=== PATIENT | female | born 1950 | race Caucasian/White ===

== ENCOUNTER 2019-03-27 12:19 | Inpatient (IN) | payer OTHER ==
[~2019-03-27] VITALS: Ht 157.5 cm; Wt 79.8 kg
[~2019-03-27 12:19] MED LIST: GABA400C PO; IBUP-1842 PO; ZOLP10TA1 PO
[2019-03-27 12:39] VITALS: BP 102/56
--- NOTE | 2019-03-27 12:50 | NUR ---
PATIENT RECEIVED FROM TRIAGE, SENT TO ER BY GARMENT CUTTER FOR LOW BP. PT STATES TAKES NORCO, FOR HX OF BROKEN NECK, ON METROPOLOL FOR PALPITTIONS. PENDING MD SOLIS
--- NOTE | 2019-03-27 13:03 | NUR ---
Dr. José is evaluating the patient at bedside.
[2019-03-27] MEDS ORDERED: NACL 0.9% 1,000 ML IV ONE (13:15)
[2019-03-27] MEDS ORDERED: ASPIRIN 81 MG TAB.CHEW PO ONE (13:15)
[2019-03-27 13:43] LABS: BASOPHILS % (AUTO) 0.4 % (0.0-2.0); EOSINOPHILS # (AUTO) 0.2 K/uL (0-0.4); EOSINOPHILS % (AUTO) 3.4 % (0.0-4.0); HEMATOCRIT 34.8 % (36-48); HEMOGLOBIN 11.4 g/dL (12.0-16.0); LYMPHOCYTES # (AUTO) 2.7 K/uL (2.5-16.5); LYMPHOCYTES % (AUTO) 38.8 % (20.5-51.1); MEAN CORPUSCULAR HEMOGLOBIN 30 pg (27-31); MEAN CORPUSCULAR HGB CONC 33 g/dL (33-37); MEAN CORPUSCULAR VOLUME 90.9 fL (80-94); MONOCYTES # (AUTO) 0.4 K/uL (0.8-1.0); NEUTROPHILS # (AUTO) 3.6 K/uL (1.8-7.7); NEUTROPHILS % (AUTO) 51.4 % (42.2-75.2); PLATELET COUNT (AUTO) 319 K/uL (140-450); RED BLOOD CELL COUNT(AUTO) 3.83 MIL/uL (4.20-5.40); RED CELL DISTRIBUTION WIDTH 14.2 % (11.6-13.7)
[2019-03-27 14:01] LABS: ALBUMIN 3.9 g/dL (3.4-5.0); ANION GAP 12.9 (8-16); CARBON DIOXIDE 29.9 mmol/L (21-32); CREATININE 0.9 mg/dL (0.6-1.3); POTASSIUM 3.8 mmol/L (3.5-5.1); TOTAL BILIRUBIN 0.4 mg/dL (0.0-1.0)
--- NOTE | 2019-03-27 14:39 | NUR ---
UA collected and sent to lab.
[2019-03-27] MEDS ORDERED: ACETAMINOPHEN 325 MG TAB PO PRN (15:25)
[2019-03-27] MEDS ORDERED: MORPHINE SULFATE 2 MG/ML SYR IVP PRN (15:25)
[2019-03-27] MEDS ORDERED: LORazepam 2 MG/ML VIAL IM/IVP PRN (15:25)
[2019-03-27] MEDS ORDERED: ZOLPIDEM 5 MG TAB PO PRN (15:25)
[2019-03-27] MEDS ORDERED: ONDANSETRON 4 MG/2 ML VIAL IM/IVP PRN (15:25)
[2019-03-27] MEDS ORDERED: DOCUSATE SODIUM 100 MG GELCAP PO PRN (15:25)
[2019-03-27] MEDS ORDERED: NITROGLYCERIN 0.4 MG TAB SL PRN (15:35)
[2019-03-27] MEDS: NACL 0.9% 1,000 ML IV SCH (15:51)
[2019-03-27 16:13] LABS: PROTHROMBIN TIME 9.3 secs (10.8-13.4)
[2019-03-27 16:27] LABS: MAGNESIUM 1.9 mg/dL (1.8-2.4); THYROID STIMULATING HORMONE 5.19 uIU/mL (0.34-3.74)
--- NOTE | 2019-03-27 16:30 | NUR ---
PATIENT RELAXED IN ED ROOM, DOING BETZAIDA, VERY TALKATIVE AND HAPPY PERSONALITY. NAD PENDING ROOM PLACEMENT.
[2019-03-27 16:38] LABS: CHOL/HDL RATIO 2.8 (1-4.5)
[2019-03-27] MEDS ORDERED: KETOROLAC 15 MG/ML VIAL IVP PRN (16:50)
[2019-03-27 17:03] LABS: BILIRUBIN,URINE NEGATIVE (NEGATIVE); BLOOD, URINE NEGATIVE (NEGATIVE); COLOR,URINE YELLOW (YELLOW); LEUKOCYTE ESTERASE ,URINE 1+ (NEGATIVE); NITRITE, URINE NEGATIVE (NEGATIVE); PH,URINE 5.5 (5.0-9.0); UGLUCOSE NEGATIVE (NEGATIVE)
[2019-03-27 17:06] LABS: APPEARANCE,URINE HAZY (CLEAR)
[2019-03-27 17:40] VITALS: BP 132/65
--- NOTE | 2019-03-27 17:40 | NUR ---
RECEIVED PATIENT FROM ER. ABLE TO AMBULATE WITH STEADY GAIT. AAOX4, CALM, COOPERATIVE, SKIN COLOR APPROPRIATE TO ETHNICITY, WARM TO TOUCH. SKIN INTACT. IV SITE INTACT, PATENT, AND INFUSING IVF PER MD ORDERS. REVIEWED PLAN OF CARE WITH PATIENT. PATIENT VERBALIZED UNDERSTANDING. ORIENTED PATIENT TO ROOM AND CALL LIGHT. SAFETY MEASURES IN PLACE, CALL LIGHT WITHIN REACH. WILL CONTINUE TO MONITOR.
--- NOTE | 2019-03-27 17:40 | NUR ---
Patient will be admitted to care of [facility] FLOOR ROOM 106A. REPORT GIVEN AT BEDSIDE TO ROSELYN COURTNEY. Belongings list completed AND SIGNED BY MYSELF/ ROSELYN COURTNEY. IVF INFUSING VIA PUMP AT 60 ML /HR.
[2019-03-27 17:42] LABS: RBC,URINE 0-5 /HPF (0-5)
[2019-03-27 17:55] LABS: BARBITURATE, URINE NEG. ng/ml (NEG <=200); BENZODIAZEPINE, URINE NEG. ng/mL (NEG <=200); CANNABINOID, URINE NEG. ng/mL (NEG <=50); COCAINE, URINE NEG. ng/mL (NEG <=300); OPIATE, URINE POS. ng/mL (NEG <=2000); PHENCYCLIDINE SCREEN,URINE NEG. ng/mL (NEG <=25)
--- NOTE | 2019-03-27 19:27 | NUR ---
GAVE REPORT TO PRODUCTION SOUND MIXER NURSE FOR CONTINUITY OF CARE. PATIENT IN STABLE CONDITION.
--- NOTE | 2019-03-27 19:28 | NUR ---
RECEIVED PATIENT FROM AM SHIFT NURSE, ABLE TO AMBULATE WITH STEADY GAIT. AAOX4, PATIENT WITH SOME HYPERACTIVE MOVEMENTS NOTED,AMBULATING INSIDE HER ROOM. COOPERATIVE, SKIN COLOR APPROPRIATE TO ETHNICITY, WARM TO TOUCH. SKIN INTACT. IV SITE INTACT,L WRIST G 20 PATENT, AND INFUSING NS AT 60ML/HR. POC REVIEWED. PATIENT VERBALIZED UNDERSTANDING. ORIENTED PATIENT TO ROOM AND CALL LIGHT. SAFETY MEASURES IN PLACE, CALL LIGHT WITHIN REACH. WILL CONTINUE TO MONITOR.
[2019-03-27 20:00] VITALS: BP 134/49
[2019-03-27] MEDS: ZOLPIDEM 10 MG TAB PO SCH (20:34)
[2019-03-27] MEDS: ATORVASTATIN 20 MG TAB PO SCH (20:34)
[2019-03-27] MEDS: HYDROcodone/APAP 5/325 MG 1 TAB TAB PO PRN (20:35)
--- NOTE | 2019-03-27 20:35 | NUR ---
PATIENT C/O OF PAIN ON THE NECK 09/26, GIVEN NORCO ORDERED. EXPLAINED THE SIDE EFFECTS. PT VERBALIZED UNDERSTANDING. WILL RE-ASSESS LATER
[2019-03-27] MEDS: GABAPENTIN 100 MG CAP PO SCH (20:36)
[2019-03-27] MEDS ORDERED: METOPROLOL 25 MG TAB PO SCH (21:00)
[2019-03-27] MEDS ORDERED: IBUPROFEN 400 MG TAB PO SCH (21:00)
--- NOTE | 2019-03-27 21:35 | NUR ---
PT RE-ASSESSED FOR PAIN MINIMAL PAIN TOLERATED. PT AMBULATING IN THE ROOM; SOME HYPERACTIVITY NOTED.
--- NOTE | 2019-03-27 23:40 | NUR ---
PT EATING A SANDWICH. ON CARDIAC DIET
[2019-03-28] VITALS: BP 132/50
--- NOTE | 2019-03-28 02:40 | NUR ---
PT TRYING TO SLEEP NO COMPLAINTS AT THI TIME, WILL CONTINUE TO MONITOR
[2019-03-28 04:00] VITALS: BP 132/52
[2019-03-28] MEDS: HYDROcodone/APAP 5/325 MG 1 TAB TAB PO PRN ×2 (04:40→20:42)
--- NOTE | 2019-03-28 05:12 | NUR ---
PT TRYING TO SLEEP, BUT NOT GETTING SLEEP, ALREADY TOOK THE SLEEPING PILL LAST NIGHT.WILL MONITOR
--- NOTE | 2019-03-28 06:18 | NUR ---
PT DISLODGED HER IVF; NO SWELLING OBSERVED; NO BLEEDING. INFORMED DR. NELSON THROUGH DR. HOLMAN. WILL TRY AGAIN LATER. PT IS ABLE TO DRINK WATER.
--- NOTE | 2019-03-28 06:41 | NUR ---
MULTIPLE TIMES IV INSERTION ON PATIENT, HARD STICK. DR. HALL INFORMED. PT IS ABLE TO DRINK FLUIDS EASILY.
--- NOTE | 2019-03-28 06:43 | NUR ---
PT A, A, O X 4, AMBULATORY. PT NO COMPLAINTS OF CHEST PAIN, NO RESPIRATORY DISTRESS NOTED WITH BLOOD PRESSURE OF 132/52 MMHG; 73 HEART RATE; 97% 02 SAT.
[2019-03-28 06:56] LABS: BASOPHILS # (AUTO) 0.1 K/uL (0.00-0.22); BASOPHILS % (AUTO) 1.6 % (0.0-2.0); EOSINOPHILS # (AUTO) 0.2 K/uL (0-0.4); EOSINOPHILS % (AUTO) 3.6 % (0.0-4.0); HEMATOCRIT 36.4 % (36-48); HEMOGLOBIN 11.6 g/dL (12.0-16.0); LYMPHOCYTES # (AUTO) 2.3 K/uL (2.5-16.5); LYMPHOCYTES % (AUTO) 35.2 % (20.5-51.1); MEAN CORPUSCULAR HEMOGLOBIN 29 pg (27-31); MEAN CORPUSCULAR HGB CONC 32 g/dL (33-37); MEAN CORPUSCULAR VOLUME 92.3 fL (80-94); MONOCYTES # (AUTO) 0.4 K/uL (0.8-1.0); MONOCYTES % (AUTO) 6.1 % (1.7-9.3); NEUTROPHILS # (AUTO) 3.5 K/uL (1.8-7.7); NEUTROPHILS % (AUTO) 53.5 % (42.2-75.2); PLATELET COUNT (AUTO) 303 K/uL (140-450); RED BLOOD CELL COUNT(AUTO) 3.94 MIL/uL (4.20-5.40); WHITE BLOOD COUNT (AUTO) 6.6 K/uL (4.8-10.8)
[2019-03-28 07:10] LABS: ANION GAP 12.3 (8-16); CARBON DIOXIDE 30.3 mmol/L (21-32); CREATININE 0.9 mg/dL (0.6-1.3); POTASSIUM 3.6 mmol/L (3.5-5.1)
--- NOTE | 2019-03-28 07:20 | NUR ---
RECEIVED BEDSIDE REPORT FROM ADULT AND PEDIATRIC NEUROLOGIST NURSE. PT IS AWAKE AND ALERT, NO S/S OF ACUTE DISTRESS OR SOB. NO IV SITE NOTED; PER NIGHT NURSE, IV SITE COULD NOT BE ESTABLISHED AFTER SEVERAL ATTEMPTS, PT IS A HARD STICK. WILL ATTEMPT TO INSERT AN IV THIS AM. PT IS ON ROOM AIR. SKIN INTACT. CALL LIGHT AND PERSONAL ITEMS ARE WITHIN REACH. WILL CONTINUE TO MONITOR.
[2019-03-28 07:22] LABS: PHOSPHORUS 3.2 mg/dL (2.5-4.9)
[2019-03-28 08:00] VITALS: BP 139/59
[2019-03-28] MEDS: NACL 0.9% 1,000 ML IV SCH (08:04)
[2019-03-28] MEDS ORDERED: LISINOPRIL 5 MG TAB PO SCH (09:00)
--- NOTE | 2019-03-28 09:10 | NUR ---
DR ANDUJAR MADE AWARE THAT PT IS C/O ITCHINESS AND WILL ORDER BENADRYL
--- NOTE | 2019-03-28 10:00 | NUR ---
PATIENT HAS BEEN SCREENED AND CATEGORIZED MODERATE NUTRITION RISK. PATIENT WILL BE SEEN WITHIN 3-5 DAYS OF ADMISSION. 03/30/19 04/01/[address]
--- NOTE | 2019-03-28 10:02 | NUR ---
AM MEDS ADMINISTERED, PT TOLERATED WELL
[2019-03-28] MEDS: ASPIRIN 81 MG TAB.CHEW PO SCH (10:03)
[2019-03-28] MEDS: FERROUS SULFATE 325 MG TABEC PO SCH (10:03)
[2019-03-28] MEDS: ASCORBIC ACID 500 MG TAB PO SCH (10:03)
[2019-03-28] MEDS: LACTOBACILLUS RHAMNOSUS GG 1 EACH CAP PO SCH (10:03)
--- NOTE | 2019-03-28 11:12 | NUR ---
IV INSERTED, L FA 22 G.
[2019-03-28 12:00] VITALS: BP 143/72
--- NOTE | 2019-03-28 14:22 | NUR ---
PT IS VISITING WITH TWO FRIENDS AT THIS TIME, NO C/O OF ANY DISTRESS.
--- NOTE | 2019-03-28 14:29 | NUR ---
Sewing Machine Bobbin Winder Note: Basic Screen: Yes High Risk DC Screen [place]: ROSAS ELMORE Al[place] Relationship: FRIEND Pre-Admission Living Arrangements: Lives Alone Prior ADL Independent Current Home Health Name/Tel: N/A Current DME/02 Name/Tel: DANNIELLE Current Hospice Name/Tel: N/A Current Dialysis Name/Tel: N/A Healthcare Decision Maker: Patient Advance Directive No - REFUSED Information Taught: Advance Directive Person Taught: Patient Teaching Tools: Verbal Factors Affecting Learning: None Participation Level: Refused Evaluation: Verbalizes Understanding Needs Additional Education: No Discipline: Case Mgt/Social Svcs Tentative Discharge Plan/Destination: No Needs Identified Will require assistance post discharge: No Referred to [facility]: No Tentative Discharge Plan Summary: Patient is a 68 y/o female admitted for chest pain and low blood pressure. Patient has PMHX of chronic pain s/p, IBS, and palpatations. Patient was admitted from home. SW verified demographics with patient. Patient denies mental heatlh history and substance abuse history. Patient's tentative plan after discharge is to return home. SW inquired if patient is able to have all needs met without the use of a learning support aide. Patient stated she is independent. Patient's plan after discharge is to return home. Signature: KATERINE Paz Date: Mar 28, 2019 Time: 14:29
[2019-03-28 16:00] VITALS: BP 140/78
--- NOTE | 2019-03-28 17:30 | NUR ---
PT IS LYING COMFORTABLY IN BED AND KNITTING. NO C/O PAIN OR DISTRESS. NO CHEST PAIN COMPLAINTS. VS ARE STABLE. CALL LIGHT IS WITHIN REACH.
--- NOTE | 2019-03-28 19:20 | NUR ---
ENDORSED PT TO CONVENTION PLANNER NURSE IN STABLE CONDITION.
--- NOTE | 2019-03-28 19:21 | NUR ---
RECEIVED ENDORSEMENT FROM AM SHIFT. NO APPARENT DISTRESS NOTED. PATIENT ALERT AND ORIENTED X4. IV ON LEFT FOREARM 22G RUNNING IVF. SKIN IS INTACT. AMBULATORY TO BATHROOM. BED ON LOW POSITION. CALL LIGHT WITHIN REACH. WILL CONTINUE TO MONITOR.
[2019-03-28 20:00] VITALS: BP 150/72
[2019-03-28] MEDS: ATORVASTATIN 20 MG TAB PO SCH (20:39)
[2019-03-28] MEDS: METOPROLOL 25 MG TAB PO SCH (20:41)
[2019-03-28] MEDS: GABAPENTIN 100 MG CAP PO SCH (20:42)
--- NOTE | 2019-03-28 21:20 | NUR ---
PATIENT AWAKE IN BED. BED ON LOW POSITION. NO APPARENT DISTRESS NOTED. CALL LIGHT WITHIN REACH. WILL CONTINUE TO MONITOR.
[2019-03-28] MEDS: ZOLPIDEM 10 MG TAB PO SCH (22:21)
--- NOTE | 2019-03-28 23:15 | NUR ---
ROUNDS DONE. PATIENT AWAKE IN BED, RESTING COMFORTABLY. NO APPARENT DISTRESS NOTED. WILL CONTINUE TO MONITOR.
[2019-03-29] VITALS: BP 134/79
[2019-03-29] MEDS: NACL 0.9% 1,000 ML IV SCH (00:22)
--- NOTE | 2019-03-29 01:15 | NUR ---
PATIENT ASLEEP IN BED. NO APPARENT DISTRESS NOTED. VISIBLE CHEST RISE AND FALL NOTED. WILL CONTINUE TO MONITOR.
--- NOTE | 2019-03-29 03:01 | NUR ---
ROUNDS DONE. PATIENT ASLEEP IN BED. VISIBLE CHEST RISE AND FALL NOTED. NO APPARENT DISTRESS NOTED. WILL CONTINUE TO MONITOR.
[2019-03-29 04:00] VITALS: BP 145/64
--- NOTE | 2019-03-29 05:00 | NUR ---
PATIENT ASLEEP IN BED. NO APPARENT DISTRESS NOTED. WILL CONTINUE TO MONITOR.
[2019-03-29 06:39] LABS: MAGNESIUM 2.1 mg/dL (1.8-2.4)
[2019-03-29 06:53] LABS: BASOPHILS % (AUTO) 0.5 % (0.0-2.0); EOSINOPHILS # (AUTO) 0.2 K/uL (0-0.4); EOSINOPHILS % (AUTO) 3.3 % (0.0-4.0); HEMATOCRIT 32.8 % (36-48); HEMOGLOBIN 10.9 g/dL (12.0-16.0); LYMPHOCYTES # (AUTO) 2.1 K/uL (2.5-16.5); LYMPHOCYTES % (AUTO) 34.4 % (20.5-51.1); MEAN CORPUSCULAR HEMOGLOBIN 31 pg (27-31); MEAN CORPUSCULAR HGB CONC 33 g/dL (33-37); MEAN CORPUSCULAR VOLUME 91.6 fL (80-94); MONOCYTES # (AUTO) 0.5 K/uL (0.8-1.0); NEUTROPHILS # (AUTO) 3.3 K/uL (1.8-7.7); NEUTROPHILS % (AUTO) 53.8 % (42.2-75.2); PLATELET COUNT (AUTO) 264 K/uL (140-450); RED BLOOD CELL COUNT(AUTO) 3.58 MIL/uL (4.20-5.40); RED CELL DISTRIBUTION WIDTH 13.9 % (11.6-13.7); WHITE BLOOD COUNT (AUTO) 6.1 K/uL (4.8-10.8)
--- NOTE | 2019-03-29 07:00 | NUR ---
ENDORSED TO AM SHIFT IN STABLE CONDITION FOR CONTINUITY OF CARE.
--- NOTE | 2019-03-29 07:05 | NUR ---
RECEIVED REPORT FROM NIGHT NURSE. PT ASLEEP, ABLE TO WAKE. RESPIRATION EVEN AND UNLABORED. NO S/S OF DISTRESS NOTED. CALL LIGHT WITHIN REACH.
[2019-03-29 07:28] LABS: ANION GAP 13.1 (8-16); CARBON DIOXIDE 24.8 mmol/L (21-32); CREATININE 0.7 mg/dL (0.6-1.3); POTASSIUM 3.9 mmol/L (3.5-5.1)
--- NOTE | 2019-03-29 07:40 | NUR ---
DR. DAVIS NOTIFIED PT OF DISCHARGE PLAN FOR TODAY.
[2019-03-29 08:00] VITALS: BP 153/82
[2019-03-29 08:09] LABS: FERRITIN 35 ng/mL (15-150); FOLIC ACID > 20.00 ng/mL (>3.0); TRANSFERRIN 319 mg/dL (200-370)
[2019-03-29] MEDS ORDERED: LACTOBACILLUS RHAMNOSUS GG 1 EACH CAP PO SCH (09:00)
[2019-03-29] MEDS: FERROUS SULFATE 325 MG TABEC PO SCH (09:01)
[2019-03-29] MEDS: HYDROcodone/APAP 5/325 MG 1 TAB TAB PO PRN (09:01)
[2019-03-29] MEDS: LACTOBACILLUS RHAMNOSUS GG 1 EACH CAP PO SCH (09:01)
[2019-03-29] MEDS: ASCORBIC ACID 500 MG TAB PO SCH (09:02)
[2019-03-29] MEDS: METOPROLOL 25 MG TAB PO SCH (09:02)
[2019-03-29] MEDS: ASPIRIN 81 MG TAB.CHEW PO SCH (09:02)
--- NOTE | 2019-03-29 09:30 | NUR ---
PT ALERT AND ORIENTED X4. PT IS ABLE AMBULATE TO THE RESTROOM WITH STEADY GAIT. PT IS FOR DISCHARGE TODAY. PT IN STABLE CONDITION.
[2019-03-29 12:00] VITALS: BP 150/61
--- NOTE | 2019-03-29 12:35 | NUR ---
PROVIDED PATIENT WITH DISCHARGE INSTRUCTIONS PACKET. PT TEACHING DONE. ALL BELONGINGS SIGNED AND GIVEN TO PATIENT. PATIENT IS GOING HOME PICKED UP BY FRIEND VIA A PRIVATE VEHICLE. IV REMOVED AND CANNULA INTACT. NO BLEEDING NOTED. ID BAND REMOVED.
--- NOTE | 2019-03-29 12:37 | NUR ---
UPON CLEANING OUT THE ROOM, PT FORGOT A SMALL MEDICATION BOTTLE. CALLED PATIENT NO ANSWER, LEFT MESSAGES, TO LET PATIENT KNOW TO UROLOGY SURGEON THE MEDICATION.
[2019-03-31] MEDS ORDERED: METO25TA PO (14:17)
--- NOTE | 2019-04-04 09:11 | NUR ---
Late entry. Confirmed with RN that 0.9 NS IV completed at 1500
== END 2019-03-29 12:35 | disposition home or self-care (01) | DRG 206 ==
LOC: MED 12:19 → MTU 15:28
PROVIDERS: ADMIT General Practice; ATTEND General Practice
DX: M94.0 Chondrocostal junction syndrome [Tietze] (principal); D64.9 Anemia, unspecified; I95.9 Hypotension, unspecified; G89.29 Other chronic pain; E66.9 Obesity, unspecified; K58.9 Irritable bowel syndrome, unspecified; Z60.2 Problems related to living alone; Z86.73 Personal history of transient ischemic attack (TIA), and cerebral infarction without residual deficits; Z86.718 Personal history of other venous thrombosis and embolism; Z86.711 Personal history of pulmonary embolism; Z88.8 Allergy status to other drugs, medicaments and biological substances; Z68.32 Body mass index [BMI] 32.0-32.9, adult
CPT/HCPCS: 36415; 71045; 80048; 80053; 80305; 81001; 82607; 82728; 82746; 83036; 83540; 83690; 83735; 83880; 84100; 84134; 84443; 84484; 85025; 85045; 85610; 85730; 87081; 87086; 93005; 96360; 99285; J0696; J1644; J1885; J2270; J7030; J7060; Q0092; Q0163

== ENCOUNTER 2021-01-24 11:02 | Emergency (ER) | payer OTHER ==
[~2021-01-24] VITALS: Ht 157.5 cm; Wt 81.6 kg
[~2021-01-24 11:02] MED LIST changes: +CEPH500C16 PO; +ERGO-30 PO; +METO25TA PO
[2021-01-24 11:10] VITALS: BP 145/51
--- NOTE | 2021-01-24 11:15 | NUR ---
PT IN LOBBY
--- NOTE | 2021-01-24 11:40 | NUR ---
DR. VASQUES EVALUATING PT
--- NOTE | 2021-01-24 11:40 | NUR ---
Female [employer] 6 [employer] Teacher accompanied female patient for BREAST Exam.
--- NOTE | 2021-01-24 11:49 | NUR ---
PT AMBULATED TO ER BED 7.
--- NOTE | 2021-01-24 12:16 | NUR ---
US TECH AT PT BEDSIDE.
--- NOTE | 2021-01-24 14:30 | NUR ---
Johny COURTNEY Female Tin Pot Operator accompanied female patient for Breast Exam performed by Dr Dumont
[2021-01-24] MEDS ORDERED: NAPR-54 PO (14:42)
[2021-01-24] MEDS ORDERED: SULF-59 PO (14:42)
[2021-01-24 14:53] VITALS: BP 145/51
--- NOTE | 2021-01-24 14:53 | NUR ---
Patient discharged with v/s stable. Written and verbal after care instructions given and explained. Patient alert, oriented and verbalized understanding of instructions. Ambulatory with steady gait. All questions addressed prior to discharge. ID band removed. Patient advised to follow up with PMD. Rx of NAPROSYN AND BACTRIM given. Patient educated on indication of medication including possible reaction and side effects. Opportunity to ask questions provided and answered.
== END 2021-01-24 14:53 | disposition home or self-care (01) ==
LOC: MED 11:02
DX: N64.4 Mastodynia (principal); E07.9 Disorder of thyroid, unspecified
CPT/HCPCS: 76641; 99284; Q0092

== ENCOUNTER 2021-02-11 08:53 | Emergency (ER) | payer OTHER ==
[~2021-02-11] VITALS: Ht 160 cm; Wt 80.7 kg
[~2021-02-11 08:53] MED LIST changes: +NAPR-54 PO; +SULF-59 PO
[2021-02-11 09:00] VITALS: BP 112/42
--- NOTE | 2021-02-11 09:05 | NUR ---
PATIENT AMBULATED TO BED 4.
[2021-02-11] MEDS ORDERED: KETOROLAC 30 MG/ML VIAL IM ONE (09:45)
--- NOTE | 2021-02-11 10:03 | NUR ---
pt taken to radiology for xray
--- NOTE | 2021-02-11 10:10 | NUR ---
pt c/o BLE pain s/p fall 3 weeks ago.pt ambulates with steady gait. also c/o bilateral breast redness and pain.
[2021-02-11] MEDS ORDERED: CEPH-588 PO (10:45)
[2021-02-11] MEDS ORDERED: ELIMC TP (10:45)
[2021-02-11 10:52] VITALS: BP 118/70
--- NOTE | 2021-02-11 10:52 | NUR ---
pt verbalizes dc instructions. no acute distress noted. stable on dc.
== END 2021-02-11 10:52 | disposition home or self-care (01) ==
LOC: MED 08:53
DX: N61.0 Mastitis without abscess (principal); M54.9 Dorsalgia, unspecified; E06.9 Thyroiditis, unspecified; Z86.73 Personal history of transient ischemic attack (TIA), and cerebral infarction without residual deficits
CPT/HCPCS: 72100; 96372; 99283; J1885

== ENCOUNTER 2021-03-31 14:46 | Emergency (ER) | payer OTHER ==
[~2021-03-31] VITALS: Ht 160 cm; Wt 78.5 kg
[~2021-03-31 14:46] MED LIST changes: +CEPH-588 PO; +ELIMC TP
[2021-03-31 15:31] VITALS: BP 117/60
[2021-03-31 19:22] LABS: BASOPHILS % (AUTO) 0.2 % (0.0-2.0); EOSINOPHILS % (AUTO) 0.2 % (0.0-4.0); HEMATOCRIT 21.3 % (36-48); HEMOGLOBIN 7.2 g/dL (12.0-16.0); LYMPHOCYTES # (AUTO) 1.3 K/uL (2.5-16.5); LYMPHOCYTES % (AUTO) 22.7 % (20.5-51.1); MEAN CORPUSCULAR HEMOGLOBIN 34 pg (27-31); MEAN CORPUSCULAR HGB CONC 34 g/dL (33-37); MEAN CORPUSCULAR VOLUME 100.2 fL (80-94); MONOCYTES # (AUTO) 0.3 K/uL (0.8-1.0); MONOCYTES % (AUTO) 4.7 % (1.7-9.3); NEUTROPHILS # (AUTO) 4.1 K/uL (1.8-7.7); NEUTROPHILS % (AUTO) 72.2 % (42.2-75.2); PLATELET COUNT (AUTO) 99 K/uL (140-450); RED BLOOD CELL COUNT(AUTO) 2.13 MIL/uL (4.20-5.40); RED CELL DISTRIBUTION WIDTH 17.6 % (11.6-13.7); WHITE BLOOD COUNT (AUTO) 5.7 K/uL (4.8-10.8)
--- NOTE | 2021-03-31 19:40 | NUR ---
PT AMBULATED TO BED.
[2021-03-31 19:51] LABS: ALBUMIN 3.4 g/dL (3.4-5.0); ANION GAP 13.5 (8-16); CARBON DIOXIDE 28.1 mmol/L (21-32); CREATININE 0.9 mg/dL (0.6-1.3); POTASSIUM 3.6 mmol/L (3.5-5.1); TOTAL BILIRUBIN 0.2 mg/dL (0.0-1.0)
[2021-03-31 21:00] VITALS: BP 115/56
--- NOTE | 2021-03-31 21:00 | NUR ---
70 Y/O F BIB SELF FOR THROBBING AND SWELLIN OF BREAST TISSUE. PT SAYS SHE WAS SINCE January AND SHE WAS GIVEN SULFA DRUG WHICH MADE HER THROW UP. PT STATES THAT SHE WAS THEN GIVEN KEFLEX. PT STATES THAT HER BREAST WERE PURPLE. PT STATES SHE ALSO HAS BEEN DEALING WITH CHRONIC PAIN FOR A PRIOR BACK INJURY. PT DENIES NPT IS EXPERIENCING SOME SOB BUT THATS DUE TO THE BREAST . PT DENIED/V/COUGH. PT IS COVID VACCINTED/ MED HX: CHRONIC PAIN (SHE TAKES NORCO) HTN (METPOROLOL 100 MH)
--- NOTE | 2021-03-31 21:20 | NUR ---
PT ASKED FOR BLANKETS. PROVIDED PT WITH A WARM BLANKET.
[2021-03-31] MEDS ORDERED: IBUP-2213 PO (21:23)
--- NOTE | 2021-03-31 22:05 | NUR ---
The patient's care was reviewed and supervised by Ashley Ojeda RN.
== END 2021-03-31 22:00 | disposition home or self-care (01) ==
LOC: MED 14:46
DX: N64.4 Mastodynia (principal); I88.0 Nonspecific mesenteric lymphadenitis; B34.9 Viral infection, unspecified; D50.9 Iron deficiency anemia, unspecified; I10 Essential (primary) hypertension; E07.9 Disorder of thyroid, unspecified; Z79.899 Other long term (current) drug therapy; Z88.1 Allergy status to other antibiotic agents; Z88.8 Allergy status to other drugs, medicaments and biological substances; Z98.890 Other specified postprocedural states
CPT/HCPCS: 36415; 74150; 76641; 80053; 83690; 85025; 99285; Q0092

== ENCOUNTER 2021-05-04 14:13 | Emergency (ER) | payer OTHER ==
[~2021-05-04] VITALS: Ht 160 cm; Wt 77.1 kg
[~2021-05-04 14:13] MED LIST changes: +IBUP-2213 PO
[2021-05-04 14:24] VITALS: BP 126/55
--- NOTE | 2021-05-04 17:00 | NUR ---
NO NURSING INTERVENTIONS PROVIDED
--- NOTE | 2021-05-04 17:08 | NUR ---
Patient discharged with v/s stable. Written and verbal after care instructions ABOUT HEAD INJURY AND CERVICAL SPRAIN given and explained. Patient verbalized understanding. Ambulatory with steady gait. All questions addressed prior to discharge. Advised to follow up with PMD.
== END 2021-05-04 17:08 | disposition home or self-care (01) ==
LOC: MED 14:13
DX: S13.4XXA Sprain of ligaments of cervical spine, initial encounter (principal); S09.90XA Unspecified injury of head, initial encounter; M25.551 Pain in right hip; M25.552 Pain in left hip; I10 Essential (primary) hypertension; E07.9 Disorder of thyroid, unspecified; Z88.1 Allergy status to other antibiotic agents; Z88.8 Allergy status to other drugs, medicaments and biological substances; Z79.899 Other long term (current) drug therapy; Z98.890 Other specified postprocedural states; W19.XXXA Unspecified fall, initial encounter; Y93.89 Activity, other specified; Y92.89 Other specified places as the place of occurrence of the external cause; Y99.8 Other external cause status
CPT/HCPCS: 70450; 72125; 72170; 99285

== ENCOUNTER 2021-05-10 12:49 | Inpatient (IN) | payer OTHER, SELFPAY ==
[~2021-05-10] VITALS: Ht 160 cm; Wt 77.1 kg
[2021-05-10 13:00] VITALS: BP 92/48
--- NOTE | 2021-05-10 13:28 | NUR ---
ASA SWABED AND WALKED TO THE LAB.
--- NOTE | 2021-05-10 13:37 | NUR ---
BIB FRIEND C/O DIZZINESS, 8/10 CHEST PAIN, DIFFICULTY BREATHING X 3 DAYS. SEEN HERE FOR FALL 6 DAYS AGO. BP 92/48 AT THIS TIME. PMH: CHRONIC NECK PAIN, CERVICAL FUSION,HTN, THYROID, NECK SURGERY 2003
[2021-05-10] MEDS ORDERED: KETOROLAC 30 MG/ML VIAL IVP ONE (15:05)
[2021-05-10] MEDS ORDERED: ONDANSETRON 4 MG/2 ML VIAL IVP ONE (15:05)
[2021-05-10] MEDS ORDERED: NACL 0.9% 1,000 ML IV ONE ×2 (15:05→18:50)
--- NOTE | 2021-05-10 16:51 | NUR ---
PT TAKEN TO ER BED 14 VIA W/C.
[2021-05-10 16:52] LABS: BASOPHILS # (AUTO) 1.5 K/uL (0.00-0.22); BASOPHILS % (AUTO) 2.1 % (0.0-2.0); EOSINOPHILS # (AUTO) 0.8 K/uL (0-0.4); EOSINOPHILS % (AUTO) 1.1 % (0.0-4.0); LYMPHOCYTES # (AUTO) 9.2 K/uL (2.5-16.5); LYMPHOCYTES % (AUTO) 13.2 % (20.5-51.1); MEAN CORPUSCULAR HEMOGLOBIN 31 pg (27-31); MEAN CORPUSCULAR HGB CONC 30 g/dL (33-37); MEAN CORPUSCULAR VOLUME 103.3 fL (80-94); MONOCYTES # (AUTO) 6.2 K/uL (0.8-1.0); MONOCYTES % (AUTO) 8.9 % (1.7-9.3); NEUTROPHILS # (AUTO) 52.3 K/uL (1.8-7.7); NEUTROPHILS % (AUTO) 74.7 % (42.2-75.2); PLATELET COUNT (AUTO) 139 K/uL (140-450); RED CELL DISTRIBUTION WIDTH 19.8 % (11.6-13.7)
[2021-05-10 16:56] LABS: HEMOGLOBIN 3.7 g/dL (12.0-16.0)
[2021-05-10 16:57] LABS: HEMATOCRIT 12.4 % (36-48)
[2021-05-10 17:13] LABS: ALBUMIN 2.7 g/dL (3.4-5.0); ANION GAP 16.8 (8-16); CARBON DIOXIDE 23.8 mmol/L (21-32); CREATININE 1.3 mg/dL (0.6-1.3); POTASSIUM 4.6 mmol/L (3.5-5.1); TOTAL BILIRUBIN 0.6 mg/dL (0.0-1.0)
[2021-05-10] MEDS ORDERED: ONDANSETRON 4 MG/2 ML VIAL ONE (17:31)
[2021-05-10] MEDS ORDERED: cefTRIAXone 1,000 MG VIAL ONE (17:31)
[2021-05-10] MEDS ORDERED: KETOROLAC 30 MG/ML VIAL ONE (17:31)
--- NOTE | 2021-05-10 17:59 | NUR ---
IV INSERTED TO LEFT WRIST #[id number]. MEDICATED PER ORDER.
[2021-05-10] MEDS ORDERED: ACETAMINOPHEN 325 MG TAB PO PRN (19:00)
[2021-05-10] MEDS ORDERED: NOREPINEPHRINE 8 MG in DEXTROSE 5% 250 ML IV PRN (19:00)
[2021-05-10] MEDS ORDERED: DOCUSATE SODIUM 100 MG GELCAP PO PRN (19:00)
[2021-05-10] MEDS ORDERED: guaiFENesin DM 200/20 MG-10 ML 10 ML UDC PO PRN (19:00)
[2021-05-10] MEDS ORDERED: POTASSIUM CHLORIDE 10 MEQ TABER PO PRN (19:00)
--- NOTE | 2021-05-10 19:21 | NUR ---
PT MOVED TO ER BED 1
--- NOTE | 2021-05-10 19:30 | NUR ---
Pt returned back from CT to room 01. Assumed care of pt at this time.
[2021-05-10 19:48] LABS: CHOL/HDL RATIO 8.8 (1-4.5); FREE T4 (FREE THYROXINE) 1.02 ng/dL (0.76-1.46); MAGNESIUM 2.7 mg/dL (1.8-2.4); PHOSPHORUS 4.3 mg/dL (2.5-4.9); THYROID STIMULATING HORMONE 7.13 uIU/mL (0.34-3.74)
--- NOTE | 2021-05-10 20:00 | NUR ---
Informed consent obtained by ALEAH Armijo at this time. Consent form signed.
[2021-05-10 20:01] LABS: PROTHROMBIN TIME 15.8 secs (10.8-13.4)
--- NOTE | 2021-05-10 20:03 | NUR ---
Female Hotbed Transfer Operator accompanied female patient for Rectal Exam.
--- NOTE | 2021-05-10 20:15 | NUR ---
ERMD at bedside to perform central line placement to the Right femoral. Time out conducted before procedure started.
[2021-05-10] MEDS: NACL 0.9% 1,000 ML IV SCH (20:27)
[2021-05-10] MEDS ORDERED: NOREPINEPHRINE 4 MG/4 ML VIAL IV ONE (20:28)
--- NOTE | 2021-05-10 21:55 | NUR ---
Consent signed per Pt agreeing to administration of blood. Blood has been type and crossmatched. Blood sent from blood bank. Information on unit of blood checked against patient wristband at bedside by two nurses. All information matches. Patient or responsible democrat informed of potential complications associated with blood transfusion. Informed of possible transfusion reaction symptoms. Aware of need to notify nurse at once of itching, shortness of breath, flushing, feeling of impending doom, or other symptoms not previously present. Vital signs taken within 5 minutes prior to initiation of transfusion. RN will remain with patient for first 15 minutes of transfusion at which time vital signs will be re-assessed.
--- NOTE | 2021-05-10 22:10 | NUR ---
Pt report given to ROZ Wood. Transfer of care at this time.
--- NOTE | 2021-05-10 22:58 | NUR ---
patient ambulated to the commode to urinate- tolerated well. Patient then attached to the hauling contractor, attached lines of medications through R femoral triple lumenPICC line-- flowed 10cc flowed in each, safety measures are in place, will continue to monitor patient. VSS and AAOx3- confused.
--- NOTE | 2021-05-11 00:12 | NUR ---
patient ambulated to the commode to urinate- tolerated well. Patient then attached to the satellite project site monitor, safety measures are in place, & will continue to monitor patient. VSS and AAOx3- confused.
[2021-05-11] MEDS: HYDROcodone/APAP 7.5/325 MG 1 TAB PO PRN (03:02)
[2021-05-11] MEDS: ZOLPIDEM 5 MG TAB PO PRN (03:02)
[2021-05-11] MEDS: NACL 0.9% 1,000 ML IV SCH ×5 (03:07→21:43)
--- NOTE | 2021-05-11 06:37 | NUR ---
patient ambulated to the commode to urinate- tolerated well. Patient then attached to the baggage handler, safety measures are in place, & will continue to monitor patient. VSS and AAOx3- confused.
--- NOTE | 2021-05-11 06:46 | NUR ---
patient able to receive to units of blood-- patient tolerated well. no reactions to the 2 units, patient feels some relief.
--- NOTE | 2021-05-11 07:21 | NUR ---
Pt report given to Xochitl COURTNEY. Transfer of care at this time.
[2021-05-11 07:41] LABS: HEMATOCRIT 21.2 % (36-48); MEAN CORPUSCULAR HEMOGLOBIN 31 pg (27-31); MEAN CORPUSCULAR HGB CONC 32 g/dL (33-37); MEAN CORPUSCULAR VOLUME 96.4 fL (80-94); PLATELET COUNT (AUTO) 137 K/uL (140-450); RED CELL DISTRIBUTION WIDTH 18.5 % (11.6-13.7)
--- NOTE | 2021-05-11 08:00 | NUR ---
Pt is awake, alert x4 and able to make needs known at this time. Able to follow simple commands. Resp even and unlabored on 4 LPM. Lung sounds are clear/dim. No cough noted. Denies N/V/D/CP at this time. Abd is soft and non-tender to touch. All safety measures in place and call light in reach.
--- NOTE | 2021-05-11 08:00 | NUR ---
Pt is awake alert X4, able to make needs known and follow commands. Remains afebrile. PICC to Right femoral patent and intact on levophed drip with VSS. Abd is soft with BS + x4. Assisted to ambulate to commode safely. Urinating clear yellow urine freely. All safety measures in place. Call light in reach.
[2021-05-11] MEDS: PANTOPRAZOLE 40 MG TABEC PO SCH (09:02)
--- NOTE | 2021-05-11 09:24 | NUR ---
PATIENT HAS BEEN SCREENED AND CATEGORIZED LOW NUTRITION RISK. PATIENT WILL BE SEEN WITHIN 7 DAYS OF ADMISSION. 05/17/[address]
[2021-05-11 09:51] LABS: ANION GAP 16.5 (8-16); CARBON DIOXIDE 22.3 mmol/L (21-32); CREATININE 1.2 mg/dL (0.6-1.3); POTASSIUM 3.8 mmol/L (3.5-5.1)
[2021-05-11 10:00] LABS: WHITE BLOOD COUNT (AUTO) 62.9 K/uL (4.8-10.8)
[2021-05-11 10:02] LABS: HEMOGLOBIN 6.8 g/dL (12.0-16.0)
[2021-05-11 10:03] LABS: LYMPHOCYTES % (MANUAL) 10 % (20-46); METAMYELOCYTES % 14 % (0-0); MONOCYTES % (MANUAL) 10 % (5-12); MYELOCYTES % 10 % (0-0)
--- NOTE | 2021-05-11 10:24 | NUR ---
Dr Gerard made aware of Hg/WBC critical values at this time.
--- NOTE | 2021-05-11 13:20 | NUR ---
Dr Maldonado at bedside to consult with pt.
--- NOTE | 2021-05-11 14:33 | NUR ---
Dr Florez at bedside to assess pt. Made Dr Florez aware that pt has an increase in need of 02 and desats during ambulation.
--- NOTE | 2021-05-11 14:35 | NUR ---
US at bedside to perform procedure at this time.
--- NOTE | 2021-05-11 15:10 | NUR ---
Pt found without NC in place. Pt stated she removed the cannula due to discomfort. Educated on the risks and benefits of keeping the cannula in place. Pt acknowledged education with teach back. Pt verbal contract to keep oxygen on at this time.
--- NOTE | 2021-05-11 16:45 | NUR ---
Pt found without NC in place again. Pt stated she removed the cannula as it was not comfortable. Educated patient on the risks and benefits of keeping the cannula in place. Pt acknowledged education with teach back. Pt verbal contract to keep oxygen on at this time.
--- NOTE | 2021-05-11 17:58 | NUR ---
Pt noted desat on the monitor. Assessed pt and found without NC in place again. Pt stated she removed the cannula as it was not comfortable. Educated and advised patient on the risks and benefits of keeping the cannula in place. Pt acknowledged education with teach back. Pt verbal contract to keep oxygen on at this time.
[2021-05-11 18:17] LABS: BILIRUBIN,URINE NEGATIVE (NEGATIVE); BLOOD, URINE NEGATIVE (NEGATIVE); COLOR,URINE YELLOW (YELLOW); LEUKOCYTE ESTERASE ,URINE 1+ (NEGATIVE); NITRITE, URINE NEGATIVE (NEGATIVE); PH,URINE 5.5 (5.0-9.0); UGLUCOSE NEGATIVE (NEGATIVE)
[2021-05-11] MEDS ORDERED: cefTRIAXone 1,000 MG VIAL ONE (18:31)
[2021-05-11 18:38] LABS: BARBITURATE, URINE NEGATIVE ng/ml (NEG <=200); BENZODIAZEPINE, URINE NEGATIVE ng/mL (NEG <=200); CANNABINOID, URINE NEGATIVE ng/mL (NEG <=50); COCAINE, URINE NEGATIVE ng/mL (NEG <=300); OPIATE, URINE POSITIVE ng/mL (NEG <=2000); PHENCYCLIDINE SCREEN,URINE NEGATIVE ng/mL (NEG <=25)
[2021-05-11 18:39] LABS: APPEARANCE,URINE CLOUDY (CLEAR); RBC,URINE NONE SEEN /HPF (0-5)
[2021-05-11 18:40] LABS: WBC,URINE TOO MANY TO COUNT /HPF (0-5)
[2021-05-11] MEDS ORDERED: ADENOSINE 6 MG/2 ML VIAL IVP ONE (18:47)
--- NOTE | 2021-05-11 19:20 | NUR ---
Pt report given to ROZ Paige. Transfer of care at this time.
[2021-05-11 19:50] LABS: HEMATOCRIT 20.7 % (36-48); MEAN CORPUSCULAR HEMOGLOBIN 31 pg (27-31); MEAN CORPUSCULAR HGB CONC 33 g/dL (33-37); MEAN CORPUSCULAR VOLUME 93.6 fL (80-94); PLATELET COUNT (AUTO) 150 K/uL (140-450); RED BLOOD CELL COUNT(AUTO) 2.21 MIL/uL (4.20-5.40); RED CELL DISTRIBUTION WIDTH 18.7 % (11.6-13.7)
[2021-05-11 19:57] LABS: HEMOGLOBIN 6.8 g/dL (12.0-16.0); WHITE BLOOD COUNT (AUTO) 55.8 K/uL (4.8-10.8)
--- NOTE | 2021-05-11 20:50 | NUR ---
RECIEVED REPORT OF CRITICAL LABS, DR NELSON NOTIFIED VIA TEXT. SHE ADVISED TO PLACE CONSULT FOR DR RHIANNON BRAN (HEME/ONC).
[2021-05-11] MEDS: LACTULOSE 20 GM/30 ML UDC PO SCH (21:03)
[2021-05-11 21:04] LABS: BLASTS, MANUAL % 37 % (0-0); LYMPHOCYTES % (MANUAL) 6 % (20-46); METAMYELOCYTES % 1 % (0-0)
[2021-05-12] MEDS: NACL 0.9% 1,000 ML IV SCH ×4 (00:54→16:43)
[2021-05-12] MEDS: HYDROcodone/APAP 7.5/325 MG 1 TAB PO PRN (01:29)
[2021-05-12] MEDS: ZOLPIDEM 5 MG TAB PO PRN (01:30)
--- NOTE | 2021-05-12 02:31 | NUR ---
NS DUE AT 0145 NOT GIVEN BECAUSE PREVIOUS NS IS STILL RUNNING (SLOWLY) FROM FEMORAL PICC LINE.
--- NOTE | 2021-05-12 07:32 | NUR ---
TRANSFER OF CARE REPORT GIVEN TO KOFFI COURTNEY
[2021-05-12 09:07] LABS: T4 (THYROXINE) 6.2 ug/dL (4.5-12.0)
[2021-05-12] MEDS ORDERED: cefTRIAXone 1,000 MG VIAL ONE (09:31)
[2021-05-12 09:52] LABS: HEMATOCRIT 20.3 % (36-48); MEAN CORPUSCULAR HEMOGLOBIN 31 pg (27-31); MEAN CORPUSCULAR HGB CONC 33 g/dL (33-37); PLATELET COUNT (AUTO) 132 K/uL (140-450); RED BLOOD CELL COUNT(AUTO) 2.14 MIL/uL (4.20-5.40); RED CELL DISTRIBUTION WIDTH 19.3 % (11.6-13.7)
[2021-05-12] MEDS: LACTULOSE 20 GM/30 ML UDC PO SCH ×3 (10:02→23:03)
[2021-05-12] MEDS: PANTOPRAZOLE 40 MG TABEC PO SCH (10:02)
[2021-05-12 10:07] LABS: CARBON DIOXIDE 24.1 mmol/L (21-32); CREATININE 0.7 mg/dL (0.6-1.3); POTASSIUM 3.1 mmol/L (3.5-5.1)
--- NOTE | 2021-05-12 10:19 | NUR ---
Patient appears to be resting comfortably in bed. Vital Signs within normal limits. Respirations even and unlabored. linens and gown changed.
--- NOTE | 2021-05-12 13:25 | NUR ---
pt states she is feeling very anxious, unsteady gait at this time, pt is trying to get out of bed. md weiner will be notified at this time.
[2021-05-12 14:09] LABS: HEMOGLOBIN 6.7 g/dL (12.0-16.0); WHITE BLOOD COUNT (AUTO) 45.3 K/uL (4.8-10.8)
[2021-05-12 14:10] LABS: LYMPHOCYTES % (MANUAL) 3 % (20-46)
[2021-05-12 14:11] LABS: METAMYELOCYTES % 10 % (0-0); MONOCYTES % (MANUAL) 7 % (5-12); MYELOCYTES % 7 % (0-0)
[2021-05-12] MEDS ORDERED: LORazepam 2 MG/ML VIAL ONE (14:47)
--- NOTE | 2021-05-12 15:04 | NUR ---
pt assisted 2 rn from comode to bed, linens and diapered, unsteady gait, unable to reorient to stop using comode without assist.
[2021-05-12] MEDS: LORazepam 2 MG/ML VIAL IM/IVP PRN (15:06)
--- NOTE | 2021-05-12 16:50 | NUR ---
PT MOVED TO ER BED 13 FOR CLOSER MONITORING.
--- NOTE | 2021-05-12 18:15 | NUR ---
DR POLLOCK, [facility] AT BEDSIDE EVALUATING PT
[2021-05-12] MEDS: SENNA 8.6 MG TAB PO SCH (19:35)
--- NOTE | 2021-05-12 19:39 | NUR ---
Pt report given to migdalia murphy. Transfer of care at this time.
--- NOTE | 2021-05-12 19:47 | NUR ---
PT SITTING IN BED LOCKED IN LOWESTPOSITION W X2 SIDERAILS UP FOR PT SAFETY. PT REPORTS FEELING OK JUST COLD AND WANTS TO SLEEP. PT ASSISTED TO LAYING POSITION IN R LATERAL +COVERED WITH BLANKET. NEEDS MET AT THIS TIME. PT CONNECTED TO MONTIOR W VSS. BREATHING EVEN AND UNLABORES. NAD NOTED, WILL CONTINUE TO MONITOR.
--- NOTE | 2021-05-12 22:10 | NUR ---
PT LAYING IN BED APEARS TO BE RESTING. VSS. BLANKET ON. BREATHING EVEN AND UNLABORED. NAD NOTED, WILL CONTINUE TO MONITOR.
--- NOTE | 2021-05-12 22:41 | NUR ---
PT MOVED TO BED 5
[2021-05-12] MEDS: PANTOPRAZOLE 40 MG INJ VIAL IVP SCH (23:02)
[2021-05-12 23:18] LABS: PROTHROMBIN TIME 17.1 secs (10.8-13.4)
--- NOTE | 2021-05-12 23:21 | NUR ---
Dr. Oconnor notified of pt currently in afib RVR
--- NOTE | 2021-05-12 23:22 | NUR ---
Dr. Oconnor at bedside.
--- NOTE | 2021-05-12 23:23 | NUR ---
verbal order of 10mg cardizem IVP
--- NOTE | 2021-05-12 23:25 | NUR ---
pt remains in RVR at this time. Dr. Oconnor made aware. verbal order of metoprolol 5mg IVP
--- NOTE | 2021-05-12 23:26 | NUR ---
PT BECOMING INCREASINGLY CONFUSED, AOX2, GCS 14, AND APPEARS ANXIOUS, HR FLUCTUATING 165-200S. MD NELSON AND ALEAH AWARE.
[2021-05-12] MEDS ORDERED: ADENOSINE 6 MG/2 ML VIAL IVP ONE (23:30)
[2021-05-12] MEDS ORDERED: DILTIAZEM 25 MG/5 ML VIAL IVP ONE ×2 (23:31→23:45)
[2021-05-12] MEDS ORDERED: METOPROLOL 5 MG/5 ML VIAL ONE (23:39)
[2021-05-12] MEDS ORDERED: fentaNYL citrate 0.05 MG/ML VIAL ONE (23:54)
[2021-05-12] MEDS ORDERED: MIDAZOLAM 2 MG/2 ML VIAL ONE (23:54)
[2021-05-13] MEDS ORDERED: fentaNYL citrate 0.05 MG/ML VIAL IVP ONE (00:05)
[2021-05-13] MEDS ORDERED: MIDAZOLAM 2 MG/2 ML VIAL IVP ONE (00:05)
--- NOTE | 2021-05-13 00:07 | NUR ---
PT SHOCKED W 120 J AT THIS TIME. ERMD AT BEDSIDE. PT VS NOW 112HR, 13RR, 100 02 SAT ON 3L NC, BP 124/86. CONNECTED TO MONITOR, WILL CONTINUE TO MONITOR. PT GIVEN FENTANYL 0005 PT GIVEN VERSED 0006
[2021-05-13] MEDS: NACL 0.9% 1,000 ML IV SCH ×2 (00:30→10:38)
--- NOTE | 2021-05-13 01:00 | NUR ---
PT IN BED AWAKE, MOVING AROUND, ASSITED TO A COMFORTABLE POSITION, BLNAKET ON . CONNECTED TO MONITOR. TACHY BUT OTHER RALPH VSS. ON 3L NC. WILL CONTINUE TO MONITOR.
--- NOTE | 2021-05-13 02:00 | NUR ---
PT PROVIDED W PERINEAL CARE AND REPOSITIONING. VSS ON MONITOR. BED LOCKED IN LOWEST POSITION W X2 SIDERAILS UP FOR PT SAFETY. NAD NOTED, WILL CONTINUE TO MONITOR.
[2021-05-13] MEDS: ONDANSETRON 4 MG/2 ML VIAL IM/IVP PRN ×2 (02:18→16:02)
--- NOTE | 2021-05-13 02:58 | NUR ---
PT APPEARS TO BE RESTING W EYES CLOSED IN SUPINE POSITION. BLANKET ON. TACHY BUT OTHERWISE WSS ON MONITOR. BREATHING EVEN AND UNLABORED. NAD NOTED, WILL CONTINUE TO MONITOR.
--- NOTE | 2021-05-13 05:15 | NUR ---
PT APPEARS TO BE RESTING W EYES CLOSED IN L LATERAL POSITION. BED LOCKED IN LOWEST POSITION, HOB SLIGHTLY ELEVATED. PT RUNNING NS ORDRED. PT HR FLUCTUATING 106-114 OTHERWISE VSS. BREATHING EVEN AND UNLABORED. NAD NOTED, WILL CONTIUE TO MONITOR.
--- NOTE | 2021-05-13 06:15 | NUR ---
NO CHANGE IN PT STATUS AT THIS TIME.
--- NOTE | 2021-05-13 06:45 | NUR ---
ASA SAMPLE COLLECTED AND HANDED TO RICO FROM LAB.
--- NOTE | 2021-05-13 07:21 | NUR ---
Pt report given to ROZ JACOB. Transfer of care at this time.
[2021-05-13 08:06] LABS: ANION GAP 11.7 (8-16); CARBON DIOXIDE 26.1 mmol/L (21-32); CREATININE 0.6 mg/dL (0.6-1.3)
--- NOTE | 2021-05-13 08:09 | NUR ---
DIAPER SOAKED WITH WATERY, YELLOWISH STOOL. PT CLEANED AND DIAPER CHANGED AT THIS TIME.
[2021-05-13] MEDS ORDERED: cefTRIAXone 1,000 MG VIAL ONE (08:16)
[2021-05-13 08:20] LABS: POTASSIUM 2.8 mmol/L (3.5-5.1)
[2021-05-13 08:31] LABS: BASOPHILS # (AUTO) 0.2 K/uL (0.00-0.22); BASOPHILS % (AUTO) 0.6 % (0.0-2.0); EOSINOPHILS # (AUTO) 0.1 K/uL (0-0.4); EOSINOPHILS % (AUTO) 0.2 % (0.0-4.0); LYMPHOCYTES # (AUTO) 4.7 K/uL (2.5-16.5); LYMPHOCYTES % (AUTO) 12.6 % (20.5-51.1); MEAN CORPUSCULAR HEMOGLOBIN 32 pg (27-31); MEAN CORPUSCULAR HGB CONC 33 g/dL (33-37); MEAN CORPUSCULAR VOLUME 95.9 fL (80-94); MONOCYTES # (AUTO) 3.1 K/uL (0.8-1.0); MONOCYTES % (AUTO) 8.3 % (1.7-9.3); NEUTROPHILS # (AUTO) 29.2 K/uL (1.8-7.7); NEUTROPHILS % (AUTO) 78.3 % (42.2-75.2); PLATELET COUNT (AUTO) 104 K/uL (140-450); RED BLOOD CELL COUNT(AUTO) 1.85 MIL/uL (4.20-5.40); RED CELL DISTRIBUTION WIDTH 19.2 % (11.6-13.7)
[2021-05-13] MEDS: PANTOPRAZOLE 40 MG INJ VIAL IVP SCH (08:54)
[2021-05-13] MEDS: SENNA 8.6 MG TAB PO SCH ×4 (08:54→21:00)
[2021-05-13] MEDS: LACTULOSE 20 GM/30 ML UDC PO SCH ×3 (08:54→16:53)
[2021-05-13] MEDS ORDERED: allopurinoL 300 MG TAB PO SCH (09:00)
[2021-05-13] MEDS: HYDROXYUREA 500 MG CAP PO SCH ×2 (09:19→21:00)
[2021-05-13] MEDS: LORazepam 2 MG/ML VIAL IM/IVP PRN (09:24)
[2021-05-13] MEDS: KCL 20 MEQ/WATER INJ PREMIX 200 ML IV SCH ×2 (09:53→12:21)
[2021-05-13] MEDS ORDERED: LORazepam 2 MG/ML VIAL IVP PRN (10:20)
--- NOTE | 2021-05-13 11:32 | NUR ---
DC PLANNING: LUBA SPOKE WITH DREW AT [facility] ([phone]), HOME HEALTH SET UP BY [facility] WITH [facility] HOME HEALTH, HOME O2 AND PEG FEEDING SUPPLIES ARRANGED WITH LIND[facility], . MESSAGE LEFT WITH LINDY REGARDING DELIVERY. LUBA THEN SPOKE WITH THE PATIENTS SON, HE NOW STATES HE WANTS HIS MOTHER TO HAVE REHAB AND ASKED FOR PLACEMENT AT [facility] OR [facility]. LUBA EXPLAINED THAT [facility] WILL SPEAK WITH THE CONTRACTED FACILITIES, MESSAGE LEFT FOR DREW AT [facility] LETTING HER KNOW ABOUT THE CHANGE IN PLAN. LUBA WILL FOLLOW. Addendum: 05/13/21 at 1525 by Micaela Andrews CM DC PLANNING: ABOVE NOTE ENTERED IN ERROR ON THE WRONG PATIENT, DISREGARD.
[2021-05-13 11:36] LABS: HEMOGLOBIN 5.8 g/dL (12.0-16.0); WHITE BLOOD COUNT (AUTO) 37.3 K/uL (4.8-10.8)
[2021-05-13 11:37] LABS: HEMATOCRIT 17.8 % (36-48)
--- NOTE | 2021-05-13 11:37 | NUR ---
DC PLANNING: ORDERS RECEIVED FOR THE PATIENT TO TRANSFER TO [facility] FOR SUSPECTED LEUKEMIA. LUBA SPOKE WITH THE PATIENTS FRIEND ROSAS, PATIENT HAS NO FAMILY AND LIVES ALONE. SHE HAS BEEN WC BOUND FOR SOME TIME NOW RELATED TO WEAKNESS, PATIENT HAS HAD MULTIPLE ER VISITS AT THIS HOSPITAL FOR A VARIETY OF ISSUES. LUBA SPOKE WITH MASON AT THE [facility] ([phone]), HE IS FAXING FORMS THAT REQUIRE COMPLETION AND SIGNATURES. MATTEO BENZ PENDING, LUBA WILL FOLLOW. Addendum: 05/13/21 at 1601 by Micaela Andrews CM DC PLANNING: LUBA SPOKE WITH MASON AT THE [facility], STATES HE THINKS THAT THE PATIENT WILL TRANSFER TODAY BUT DOESN'T YET HAVE CONFIRMATION. LUBA SET UP ALS TRANSPORT WITH MONITORING AND O2 WITH [facility] ([phone]), ARRANGED FOR WILL CALL SO IT CAN BE ACTIVATED ONCE [facility] ASSIGNS A BED. ASKED MASON TO CALL THE ER WHEN A BED ASSIGNMENT IS MADE. LUBA WILL FOLLOW.
--- NOTE | 2021-05-13 12:39 | NUR ---
DIAPER SOAKED WITH WATERY, YELLOWISH STOOL. PT CLEANED AND DIAPER CHANGED AT THIS TIME.
--- NOTE | 2021-05-13 14:55 | NUR ---
DIAPER SOAKED WITH WATERY, YELLOWISH STOOL. PT CLEANED AND DIAPER CHANGED AT THIS TIME.
[2021-05-13] MEDS ORDERED: NACL 0.9% 500 ML IV SCH (15:11)
--- NOTE | 2021-05-13 18:35 | NUR ---
PT PULLED OUT FEMORAL CENTRAL LINE. TIP INTACT. NO BLEEDING NOTED. APPLIED PRESSURE ON SITE. PT TACHYCARDIC AT 111, ALL OTHER VSS.
--- NOTE | 2021-05-13 19:20 | NUR ---
Pat samuel in [facility] - 05/13/21 at 1921 by [facility] REPORT GIVEN TO ROZ RYAN. ALL CARES TRANSFERRED AT THIS TIME.
--- NOTE | 2021-05-13 19:21 | NUR ---
REPORT GIVEN TO ROZ MOBLEY. ALL CARES TRANSFERRED AT THIS TIME.
[2021-05-13 21:16] VITALS: BP 159/127
--- NOTE | 2021-05-13 22:48 | NUR ---
PATIENT TO ROOM 105B, MEDICAL SURGICAL TELEMETRY FLOOR. ITZ GOLDMAN RN
--- NOTE | 2021-05-13 23:35 | NUR ---
HANDOFF WITH PATIENT FOR [facility] WITH RN, HARPAL. PATIENT TO TRANSFER TO ROOM 8621 UNIT [address]. ITZ GOLDMAN RN
--- NOTE | 2021-05-14 01:06 | NUR ---
PATIENT DISCHARGE WITH AMBULANCE CREW. ITZ GOLDMAN RN
--- NOTE | 2021-05-14 14:46 | NUR ---
PHYSICAL THERAPY CO-SIGN The Physical Therapy Progress Notes documented by Dining Room Attendant Cafeteria have been reviewed. Reviewed/Co-Signed by: Roslyn Talamantes Documentation Done by: SHANITA ABDUL PTA Addendum: 05/14/21 at 1446 by Roslyn Talamantes PT Amended: Links added.
== END 2021-05-14 01:02 | disposition short-term general hospital (02) | DRG 871 ==
LOC: MED 12:49 → MTU 19:11
PROVIDERS: ADMIT Family Medicine; ATTEND Family Medicine
PROC: 06HY33Z Insertion of Infusion Device into Lower Vein, Percutaneous Approach (ICD-10-PCS; principal; 2021-05-10)
PROC: B54BZZA Ultrasonography of Right Lower Extremity Veins, Guidance (ICD-10-PCS; 2021-05-10)
PROC: 30233N1 Transfusion of Nonautologous Red Blood Cells into Peripheral Vein, Percutaneous Approach (ICD-10-PCS; 2021-05-10)
DX: A41.9 Sepsis, unspecified organism (principal); J69.0 Pneumonitis due to inhalation of food and vomit; I50.43 Acute on chronic combined systolic (congestive) and diastolic (congestive) heart failure; E43 Unspecified severe protein-calorie malnutrition; N17.0 Acute kidney failure with tubular necrosis; R65.21 Severe sepsis with septic shock; N39.0 Urinary tract infection, site not specified; E87.1 Hypo-osmolality and hyponatremia; R18.8 Other ascites; C95.00 Acute leukemia of unspecified cell type not having achieved remission; D64.9 Anemia, unspecified; K44.9 Diaphragmatic hernia without obstruction or gangrene; E03.9 Hypothyroidism, unspecified; K82.8 Other specified diseases of gallbladder; I70.90 Unspecified atherosclerosis; E86.0 Dehydration; Z20.822 Contact with and (suspected) exposure to COVID-19; E87.6 Hypokalemia; I11.0 Hypertensive heart disease with heart failure; M47.899 Other spondylosis, site unspecified; Z88.1 Allergy status to other antibiotic agents; Z86.73 Personal history of transient ischemic attack (TIA), and cerebral infarction without residual deficits; Z88.8 Allergy status to other drugs, medicaments and biological substances; Z79.899 Other long term (current) drug therapy
CPT/HCPCS: 36415; 36430; 36556; 71045; 74018; 76604; 76705; 80048; 80053; 80305; 81001; 82150; 82607; 82728; 82746; 82948; 83036; 83540; 83605; 83625; 83690; 83735; 83880; 84100; 84436; 84439; 84443; 84479; 84484; 84550; 85025; 85045; 85610; 85730; 86886; 86900; 86901; 86920; 87040; 87086; 93005; 96365; 96375; 97110; 97112; 97163-GP; 97530; 99291; C9113; J0153; J0696; J1885; J2060; J2250; J2405; J3010; J3480; J3490; J7060; P9016; Q0092

== ENCOUNTER 2022-01-09 17:58 | Emergency (ER) | payer OTHER ==
[~2022-01-09] VITALS: Ht 152.4 cm; Wt 59.0 kg
[2022-01-09 18:30] VITALS: BP 125/85
[2022-01-09 19:11] LABS: BASOPHILS % (AUTO) 0.5 % (0.0-2.0); EOSINOPHILS # (AUTO) 0.1 K/uL (0-0.4); EOSINOPHILS % (AUTO) 1.7 % (0.0-4.0); HEMOGLOBIN 10.2 g/dL (12.0-16.0); LYMPHOCYTES # (AUTO) 1.1 K/uL (2.5-16.5); LYMPHOCYTES % (AUTO) 16.6 % (20.5-51.1); MEAN CORPUSCULAR HEMOGLOBIN 33 pg (27-31); MEAN CORPUSCULAR HGB CONC 34 g/dL (33-37); MEAN CORPUSCULAR VOLUME 98.6 fL (80-94); MONOCYTES # (AUTO) 0.3 K/uL (0.8-1.0); MONOCYTES % (AUTO) 4.3 % (1.7-9.3); NEUTROPHILS % (AUTO) 76.9 % (42.2-75.2); PLATELET COUNT (AUTO) 188 K/uL (140-450); RED BLOOD CELL COUNT(AUTO) 3.04 MIL/uL (4.20-5.40); WHITE BLOOD COUNT (AUTO) 6.5 K/uL (4.8-10.8)
--- NOTE | 2022-01-09 19:30 | NUR ---
RECEIVED IN BED 9 WITH C/O DIARRHEA AND PALPITAYIONS X 3 STATES PALPITATION ONSET WAS AFTER THE INITIAL DIARRHEA. DENIES DIZZINESS OR CHEST PAIN. HX LEUKEMIA DX APR 2021 AFTER A STROKE. PMH: LEUKEMIA, STROKE APR 2021
[2022-01-09 19:35] LABS: ALBUMIN 3.7 g/dL (3.4-5.0); CARBON DIOXIDE 32.2 mmol/L (21-32); CREATININE 0.7 mg/dL (0.6-1.3); POTASSIUM 4.2 mmol/L (3.5-5.1); TOTAL BILIRUBIN 0.3 mg/dL (0.0-1.0)
[2022-01-09] MEDS ORDERED: NACL 0.9% 1,000 ML IV ONE (19:50)
[2022-01-09] MEDS ORDERED: KETOROLAC 30 MG/ML VIAL IVP ONE (20:45)
--- NOTE | 2022-01-09 21:00 | NUR ---
AMBULATED TO BR WITH STEADY GAIT
[2022-01-09] MEDS ORDERED: ONDA-188 PO (23:39)
--- NOTE | 2022-01-10 00:06 | NUR ---
AMBULATED TO BR WITH STEADY GAIT
[2022-01-10 00:10] VITALS: BP 125/85
== END 2022-01-10 00:10 | disposition home or self-care (01) ==
LOC: MED 17:58
DX: E86.0 Dehydration (principal); R00.2 Palpitations; R19.7 Diarrhea, unspecified; I10 Essential (primary) hypertension; E07.9 Disorder of thyroid, unspecified; Z86.73 Personal history of transient ischemic attack (TIA), and cerebral infarction without residual deficits; Z88.1 Allergy status to other antibiotic agents; Z88.8 Allergy status to other drugs, medicaments and biological substances; Z79.899 Other long term (current) drug therapy
CPT/HCPCS: 36415; 80053; 85025; 93005; 96361; 96374; 99284; J1885

== ENCOUNTER 2022-01-13 02:05 | Emergency (ER) | payer OTHER ==
[~2022-01-13] VITALS: Ht 160 cm; Wt 70.8 kg
[~2022-01-13 02:05] MED LIST changes: +ONDA-188 PO
[2022-01-13 02:17] VITALS: BP 142/72
--- NOTE | 2022-01-13 03:24 | NUR ---
Patient ambulated to bed 8.
--- NOTE | 2022-01-13 03:26 | NUR ---
ALIREZA AMBULATED TO AND BACK TO BED 8
--- NOTE | 2022-01-13 04:09 | NUR ---
71/F BIB SELF C/C RIGHT EAR PAIN X2 WEEKS. PATIENT STATED "ITS OUTTER EAR PAIN, YOU CAN JUST SEE THE INFECTION ON THE EAR." PATIENT HAS HAD AN INFECTION ON THE RIGHT EAR IN THE PAST (XFEW MONTHS AGO) AND WAS GIVEN ABX AND CREAM FROM PCP AT [facility]. PATIENT REPORTS +NAUSEA/CHILLS/DIAPHORETIC/FATIGUE. DENIES SOB/CP/V/D/C AT THIS TIME. PATIENT ALSO REPORTS INCREASING LEFT SHOULDER PAIN DOING ADL'S. PATIENT NAUSEATED AND TOOK PROCHLORPERAZINE 10MG FROM PERSON[facility]. DENIES TAKING PAIN MEDS. PATIENT IS AAOX4 AND AMBULATORY. 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
--- NOTE | 2022-01-13 04:23 | NUR ---
RAD AT BEDSIDE
--- NOTE | 2022-01-13 04:57 | NUR ---
PATIENT AMBULATED TO AND BACK TO BED 8
--- NOTE | 2022-01-13 05:34 | NUR ---
Dr. Ponce examining patient.
[2022-01-13] MEDS ORDERED: COROTSOL RIGHT EAR (05:38)
[2022-01-13 05:48] VITALS: BP 138/72
--- NOTE | 2022-01-13 05:48 | NUR ---
Patient discharged with v/s stable. Written and verbal after care instructions given and explained. Patient alert, oriented and verbalized understanding of instructions. Ambulatory with steady gait. All questions addressed prior to discharge. ID band removed. Patient advised to follow up with PMD. Rx of Cortisporin Otic Solution given. Patient educated on indication of medication including possible reaction and side effects. Opportunity to ask questions provided and answered.
--- NOTE | 2022-01-13 05:51 | NUR ---
The patient's care was reviewed and supervised by Sirisha Infante RN.
== END 2022-01-13 05:48 | disposition home or self-care (01) ==
LOC: MED 02:05
DX: S43.402A Unspecified sprain of left shoulder joint, initial encounter (principal); H60.92 Unspecified otitis externa, left ear; I10 Essential (primary) hypertension; I25.10 Atherosclerotic heart disease of native coronary artery without angina pectoris; Z86.73 Personal history of transient ischemic attack (TIA), and cerebral infarction without residual deficits; Z79.899 Other long term (current) drug therapy; X58.XXXA Exposure to other specified factors, initial encounter; Y93.89 Activity, other specified; Y92.89 Other specified places as the place of occurrence of the external cause; Y99.8 Other external cause status
CPT/HCPCS: 73030; 99283; Q0092